=== PATIENT | female | born 1960 | race African-American/Black ===

== ENCOUNTER → 2017-01-27 | Outpatient (CLI) | payer MEDICARE, OTHER ==
[~2017-01-27] MED LIST: ACETAMINOPHEN PO; ACETAMINOPHEN500 M3 PO; ACETAMINOPHEN650 M1 PO; ADCIRCA20 MG PO; ADVAIR 115-21 INH; ADVAIR 2501 DISK W/D; ADVAIR 2501 DISK W/D PO; ALBUTEROL 0.5ML INH; ALBUTEROL MININEB NEB; ALBUTEROL SULFAT4 MG PO; ALBUTEROL0.83 MG/ML INH; ALBUTEROL17 G1 IH; ALBUTEROL17 GM INH; ALBUTEROL17 GM NEB; ALBUTEROL2.5 MG/0.5 NEB; ALPRAZOLAM PO; ALPRAZOLAM1 MG PO; AMOXICILLIN PO; AMOXICILLIN500 M1 PO; APRESOLINE PO; ASPIRIN EC81 M1 PO; ASPIRIN ENTERI325 M1 PO; ASPIRIN PO; ASPIRIN325 M1 PO; ASPIRIN81 M1 PO; ASPIRIN81 M2 PO; ATARAX PO; ATIVAN0.5 M1 PO; AUGMENTIN PO; AVAPRO PO; AZITHROMYCIN1 GM PO; AZITHROMYCIN500 MG PO; BAYER CHEWABLE81 MG PO; BENADRYL A12.5 MG/1 PO; BENADRYL25 M1 PO; BENZONATATE PO; BIPAP; BLOOD PRESSURE MED; BLOOD PRESSURE PILL; BP MEDICATION; CARAFATE1 G PO; CARDIZEM CD PO; CARTIA XT PO; CATAPRES-TTS-20.2 MG PO; CATAPRES0.1 MG; CATAPRES0.1 MG PO; CECLOR PO; CHILDREN'S100 MG/58 PO; CHLORTHALIDONE50 MG PO; CIPRO PO; CIPRO250 MG PO; CLARITIN10 M2 PO; CLONIDINE 0.2 MG PO; CLONIDINE HCL0.1 MG PO; CLONIDINE PO; COLACE PO; COMBIVENT INH14.7 GM INH; COMBIVENT MININEB INH; COMBIVENT U/D3 M1 INH; COREG3.125 MG PO; COUGH MEDICINE; COUMADIN; DALIRESP500 MCG PO; DILTIAZEM 24HR360 M1 PO; DILTIAZEM ER360 M1 PO; DOCU SOFT100 M1 PO; DOCUSATE SODIU100 MG; DOXYCYCLINE HY100 M2 IV; DOXYCYCLINE PO; DOXYCYCLINE150 MG PO; DUONEB 2.5-0.5 M3 ML NEB; DUONEB NEB; DYAZIDE 371 CAP 37.5 DOB; EFFER-K 10 MEQ10 MEQ PO; EFFER-K 20 MEQ20 MEQ PO; FAMOTIDINE PO; FLAGYL PO; FLEXERIL PO; FLEXERIL10 M1 PO; FLEXERIL10 MG PO; FLOVENT HFA12 GM; FUROSEMIDE40 MG PO; GENOPTIC5 ML OP; GLUCOTROL PO; GUAIFENESIN600 M1 PO; HCTZ PO; HUMIBID CS TABL1 TAB PO; HUMIBID L.1 TAB.SR . PO; HUMIBID-LA600 MG PO; HYDRALAZINE HC100 MG PO; HYDRALAZINE HCL25 MG PO; HYDRALAZINE HCL50 MG PO; HYDROCHLOROTHIA25 MG PO; HYDROCODON-ACE1 EAC4 PO; HYDROCODON-ACE1 EAC5 PO; HYDROCODONE-APA1 T51 PO; HYDROXYZINE HCL25 M1 PO; INDOCET; K-DUR20 ME1 PO; K-DUR20 ME2 PO; K-LOR20 MEQ PO; KCL PO; KEFLEX; KETOPROFEN PO; KLONOPIN0.125 MG/T PO; KLOR-CON PO; LANTUS100 U/M1 SUBQ; LANTUS100 U/ML; LANTUS100 U/ML SUBQ; LASIX; LASIX PO; LASIX20 MG; LASIX20 MG PO; LEVAQUIN PO; LISINIPRIL PO; LISINOPRIL PO; LISINOPRIL20 MG PO; LORTAB 10-5001 EACH PO; LORTAB 10/500 T1 TAB; LORTAB 10/500 T1 TAB PO; LORTAB 101 TAB 10/5 PO; LORTAB 5/500 TA1 TA1 PO; LORTAB 7.5-5001 TAB; LORTAB 7.5-5001 TAB PO; LOW DOSE ASPIRI81 M1 PO; MEDROL DOSEPAK4 MG DOB; MEDROL PO; MEDROL4 MG/DOSE- PO; MELOXICAM 7.5 MG PO; METFORMIN HCL500 M1 PO; METFORMIN PO; MICRO-K; MICRO-K10 MEQ PO; MILK OF MAGNESIA PO; MOBIC PO; MONTELUKAST SOD10 MG PO; MUCINEX DM ER1 EACH PO; Mucinex; NAPROXEN250 MG PO; NICOTINE T1 PATCH .2 TOP; NILSTAT PO; NORCO; NORCO 10-325 TA1 TAB PO; NORCO 10/3251 TAB PO; NORCO 5/325 TAB1 TAB PO; NORCO 7.5/325 T1 TAB PO; NORCO1 TAB 10/3 PO; NORVASC PO; NORVASC10 MG PO; NOVOLOG100 U/M1 SUBQ; NOVOLOG100 U/M2 SQ; NOVOLOG100 U/M2 SUBQ; NOVOLOG100 U/ML; NOVOLOG100 U/ML SUBQ; NOVOLOG100 UNITS/ SUBQ; OMEPRAZOLE20 M2 PO; OMNICEF PO; OXYGEN; PEPCID AC20 M2 PO; PERCOCET PO; PERCOCET10 PO; PERCOCET5/325 PO; PHENERGAN25 MG PO; PLENDIL; POTASSIUM CHLO MC; POTASSIUM CHLO10 ME1 PO; POTASSIUM CHLO10 ME2 PO; POTASSIUM CHLO10 MEQ PO; POTASSIUM PO; POTASSIUM1 UDCAP.SA PO; PREDNISONE; PREDNISONE PO; PREDNISONE1 MG PO; PREDNISONE10 MG; PREDNISONE10 MG PO; PREDNISONE10 MG/DOSE PO; PREDNISONE5 M1; PREVACID; PRILOSEC PO; PRILOSEC20 M1 PO; PRILOSEC20 MG PO; PRILOSEC40 MG PO; PROTONIX PO; PROVENTIL0.83 MG/ML IH; PROVENTIL4 MG PO; ROBITUSSIN A-C S5 ML PO; ROBITUSSIN S/F118 ML PO; ROBITUSSIN100 MG/51 PO; ROBITUSSIN15 MG/5 ML PO; SINGULAIR PO; SPIRIVA18 MCG INH; SYMBICORT 160/4.6 G1 IH; SYMBICORT INH; TENORETIC; TENORETIC 100 T1 TAB; TRAVATAN 0.004% OU; TUSSIN CF SYRU118 ML PO; TUSSIONEX PENN473 ML PO; TUSSIONEX PO; TYLENOL325 M1 PO; ULTRAM PO; UNIPHYLL; VANCOMYCIN IV; VIBRAMYCIN100 M1 PO; VICODIN 5/500 T1 TAB; VICODIN 5/500 T1 TAB PO; VICODIN PO; WELLBUTRIN PO; WELLBUTRIN SR PO; WELLBUTRIN SR150 MG PO; XALATAN OP; XALATAN OU; XANAX0.5 MG PO; XANAX1 MG PO; ZESTORETIC 20/11 TAB PO; ZESTRIL10 M1 PO; ZESTRIL10 MG PO; ZESTRIL40 MG PO; ZITHROMAX; ZITHROMAX PO; ZITHROMAX1 G/PKT; ZITHROMAX1 G/PKT PO; ZITHROMAX500 MG PO; ZOCOR; ZOCOR20 MG PO; ZOFRAN; ZOFRAN 4 MG4 MG/2 ML IV; [UNRECOGNIZED DRUG - OTHER] PO; [UNRECOGNIZED DRUG - OTHER] PO
--- NOTE | ~2017-01-27 | MY29 ---
[facility] A Service of [facility] RADIOLOGY TEXT RESULTS PATIENT: YULIYA CORONADO LOCATION: [facility] : 62 UNIT #: [id number] AGE: [address]: GALE STEPHEN SEX: F ORDER DR: [id number] [facility] [address] [place], [place] [address] [id number] O MR#: [id number] Acc #: [id number] NAME: YULIYA CORONADO : 1960 SEX: F STUDY DATE/TIME: 01/27/2017 14:14 UNIT: [facility] ROOM: STUDY DESCRIPTION: MY BRUNA SCREENING W/ CAD BILAT Attending Physician: Gale Stephen M.D. Referring Physician: Gale Stephen M.D. Ordering Physician: Gale Stephen M.D. Primary Care Physician: Gael Stephen M.D. MEDICAL IMAGING REPORT This report is preliminary unless electronic signature is present EXAM Digital screening mammogram, 01/27/2017 HISTORY 56-year-old woman, baseline mammogram. No risk elevation. Personal history of lung cancer. COMPARISON None. Digital imaging of each breast was completed utilizing a two-view examination of each breast in craniocaudal and mediolateral-oblique projections. Review and interpretation of digital mammograms include a second review in conjunction with FDA-approved CAD device. There is a normal parenchymal presentation bilaterally consistent with the patient's age. There are no breast masses imaged and no parenchymal asymmetry is visualized. There are no suspicious microcalcifications and I see no focal architectural disturbance. IMPRESSION Negative screening digital mammogram. One-year followup recommended. ADDENDUM Breast parenchyma is fatty replaced. Patients over the age of 40 are entered into a reminder system with target due date for the next mammogram. A result letter will also be sent to the patient. BIRADS: 1 Negative Dictated by... [facility] A Service of [facility] RADIOLOGY TEXT RESULTS PATIENT: YULIYA CORONADO LOCATION: [facility] : 62 UNIT #: [id number] AGE: [address]: GALE STEPHEN SEX: F ORDER DR: Anand Man M.D. THIS IS AN ELECTRONICALLY VERIFIED REPORT Anand Man M.D. at 01/28/2017 8:10 AM KEAGAN/jamir TD: 01/27/2017 20:26 JOB #: [id number] MEDICAL IMAGING REPORT Page 1 of 1 COPY
[2017-01-27 15:21] LABS: BASOPHIL% 0.2 % (0-2.5); EOSINOPHIL# 0.1 X10e3 (0-0.7); EOSINOPHIL% 1.4 % (0.0-7.0); HEMATOCRIT 35.6 % (35.0-45.0); HEMOGLOBIN 10.6 gm/dL (12.0-16.0); LYMPHOCYTE# 1.3 X10e3 (1.0-3.5); LYMPHOCYTE% 15.1 % (17.0-45.0); MEAN CELL VOLUME 73.7 FL (83-96); MEAN CORPUSCULAR HEMOGLOBIN 21.9 PG (28-34); MEAN CORPUSCULAR HGB CONC 29.7 g/dL (30-36); MEAN PLATELET VOLUME 7.9 FL (6.5-11.5); MONOCYTE# 0.8 X10e3 (0-1.0); MONOCYTE% 9.6 % (3.0-12.0); NEUTROPHIL# 6.4 X10e3 (1.5-7.1); NEUTROPHIL% 73.7 % (40-75); PLATELET COUNT 165 X10e3 (140-420); RED BLOOD COUNT 4.82 X10e (3.90-5.30); RED CELL DISTRIBUTION WIDTH 18.4 % (11.0-15.5); WHITE BLOOD COUNT 8.7 X10e3 (4.0-10.5)
[2017-01-27 15:22] LABS: DIFF IND NO
[2017-01-27 15:43] LABS: ALBUMIN SERUM 3.9 g/dL (3.5-5.0); BILIRUBIN,TOTAL 0.1 mg/dL (0.2-2.0); BUN/CREATININE RATIO 24.28; CALCIUM SERUM 9.4 mg/dL (8.4-10.2); CREATININE SERUM 0.7 mg/dL (0.6-1.4); POTASSIUM 3.9 mmol/L (3.5-5.1); PROTEIN TOTAL SERUM 6.9 g/dL (6.0-8.3)
== END | disposition home or self-care (01) ==
LOC: CWCC 01-08 10:15
PROVIDERS: Student in an Organized Health Care Education/Training Program
DX: Z12.31 Encounter for screening mammogram for malignant neoplasm of breast (principal); Z85.118 Personal history of other malignant neoplasm of bronchus and lung; D64.9 Anemia, unspecified; I10 Essential (primary) hypertension; E11.8 Type 2 diabetes mellitus with unspecified complications; R92.8 Other abnormal and inconclusive findings on diagnostic imaging of breast
CPT/HCPCS: 36415; 80053; 82043; 83036; 84443; 85025; G0202

== ENCOUNTER 2017-02-05 21:07 | Emergency (ER) | payer MEDICARE, OTHER ==
--- NOTE | ~2017-02-05 | CR72 ---
[facility] A Service of [facility] RADIOLOGY TEXT RESULTS PATIENT: YULIYA CORONADO LOCATION: [facility] : 62 UNIT #: [id number] AGE: [address]: Caleb Geiger MD SEX: F ORDER DR: [id number] [facility] [address] [place], [place] [address] [id number] E MR#: [id number] Acc #: [id number] NAME: YULIYA CORONADO : 1960 SEX: F STUDY DATE/TIME: 02/05/2017 22:39 UNIT: [facility] ROOM: STUDY DESCRIPTION: CR Chest Single View Portable Attending Physician: Caleb Geiger M.D. Ordering Physician: Caleb Geiger M.D. Primary Care Physician: Syed Dobson M.D. MEDICAL IMAGING REPORT This report is preliminary unless electronic signature is present EXAM AP portable chest, 02/05/2017 at 22:39 HISTORY Shortness of breath, congestion and COPD for 2-3 days. History of left lower lung cancer. Atrial fibrillation. COPD. COMPARISON PA and lateral chest radiograph 10/17/2015. FINDINGS Mild cardiac enlargement. Pulmonary vascularity within normal limits. No acute airspace disease. No pleural effusion or pneumothorax identified. Lung bases partially attenuated by patient body habitus. Right chest wall [id number] extends into the cavoatrial junction. Flattening of the left hemidiaphragm likely relate to volume loss from previous partial left lung resection. IMPRESSION 1. Stable cardiomegaly. No acute chest findings. 2. Flattening of the left hemidiaphragm appears unchanged from prior and may represent volume loss from previous partial left lung resection but should be correlated with patient's known history. Dictated by... Ciara Rojas M.D. THIS IS AN ELECTRONICALLY VERIFIED REPORT Ciara Rojas M.D. at 02/06/2017 10:03 AM JESSICA/alicia [facility] A Service of [facility] RADIOLOGY TEXT RESULTS PATIENT: YULIYA CORONADO LOCATION: [facility] : 62 UNIT #: [id number] AGE: [address]: Caleb Geiger MD SEX: F ORDER DR: TD: 02/06/2017 00:44 JOB #: [id number] MEDICAL IMAGING REPORT Page 1 of 1 COPY
--- NOTE | ~2017-02-05 | EKG ---
PATIENT: YULIYA CORONADO UNIT #: [id number] Ventricular Rate: 88 BPM Atrial Rate: 88 BPM P-R Interval: 172 ms QRS Duration: 86 ms Q-T Interval: 350 ms QTC Calculation(Bezet): 423 ms P Weir: 80 degrees Calculated R Weir: 15 degrees Calculated T Weir: 47 degrees Diagnosis Line: Normal sinus rhythm Diagnosis Line: Normal ECG Diagnosis Line: When compared with ECG of 16-OCT-2015 22:53, Diagnosis Line: No significant change was found Diagnosis Line: Confirmed by MARGIE HODGE MD ([id number]) on 02/06/2017 Diagnosis Line: 8:31:10 PM INTERPRETING MD: NAVEEN MANNING
[2017-02-05 23:04] LABS: POC - CKMB 4.2 ng/mL (0.0-7.9); POC - TROPONIN <0.05 ng/mL (<=0.05)
[2017-02-05 23:38] LABS: ALBUMIN SERUM 3.8 g/dL (3.5-5.0); BILIRUBIN, DIRECT 0.1 mg/dL (0.0-0.2); BILIRUBIN,INDIRECT 0.3 mg/dL (0.0-0.9); BILIRUBIN,TOTAL 0.4 mg/dL (0.2-2.0); BUN/CREATININE RATIO 18.57; CREATININE SERUM 0.7 mg/dL (0.6-1.4); POTASSIUM 4.1 mmol/L (3.5-5.1); PROTEIN TOTAL SERUM 6.7 g/dL (6.0-8.3)
[2017-02-05 23:57] LABS: BASOPHIL# 0.1 X10e3 (0-0.3); BASOPHIL% 0.7 % (0-2.5); EOSINOPHIL# 0.2 X10e3 (0-0.7); EOSINOPHIL% 2.7 % (0.0-7.0); HEMATOCRIT 33.7 % (35.0-45.0); LYMPHOCYTE# 1.4 X10e3 (1.0-3.5); LYMPHOCYTE% 19.2 % (17.0-45.0); MEAN CELL VOLUME 73.5 FL (83-96); MEAN CORPUSCULAR HEMOGLOBIN 21.9 PG (28-34); MEAN CORPUSCULAR HGB CONC 29.7 g/dL (30-36); MEAN PLATELET VOLUME 8.5 FL (6.5-11.5); MONOCYTE# 0.6 X10e3 (0-1.0); MONOCYTE% 8.6 % (3.0-12.0); NEUTROPHIL% 68.8 % (40-75); PLATELET COUNT 153 X10e3 (140-420); RED BLOOD COUNT 4.58 X10e (3.90-5.30); RED CELL DISTRIBUTION WIDTH 18.6 % (11.0-15.5); WHITE BLOOD COUNT 7.3 X10e3 (4.0-10.5)
[2017-02-05 23:58] LABS: DIFF IND NO
[2017-02-06 00:45] LABS: POC - CKMB 7.1 ng/mL (0.0-7.9); POC - TROPONIN <0.05 ng/mL (<=0.05)
== END 2017-02-06 01:50 | disposition home or self-care (01) ==
LOC: CED 21:07
PROVIDERS: Emergency Medicine
DX: J44.1 Chronic obstructive pulmonary disease with (acute) exacerbation (principal); I50.9 Heart failure, unspecified; Z88.8 Allergy status to other drugs, medicaments and biological substances
CPT/HCPCS: 36415; 71010; 80048; 80076; 82553; 83880; 84484; 85025; 85610; 87040; 93005; 94640; 96374; 99285; J1940; J2405; J2930